=== PATIENT | female | born 1975 | race Asian ===

== ENCOUNTER 2017-10-27 05:43 | Emergency (ER) | END 2017-10-27 10:22 | disposition home or self-care (01) ==

== ENCOUNTER 2018-04-12 07:42 | Emergency (ER) | payer OTHER ==
[~2018-04-12] VITALS: Ht 152.4 cm; Wt 52.0 kg
[~2018-04-12 07:42] MED LIST: GLIP5TAB13 PO; HYDR-4011 PO; LISI-313 PO; LORA5TAB4 PO; METF100010 PO; NAPR-985 PO; PHEN-538 PO; SIMV40TA2 PO
[2018-04-12 07:46] VITALS: BP 156/80; PULSE 75; RESP 19; Ht 152.4 cm; Wt 52.0 kg
--- NOTE | 2018-04-12 09:20 | ERD ---
ER Documentation Chief Complaint Chief Complaint right thumb pain HPI 43-year-old female presents with pain in the right thumb for 1 week. States that she gardens and thinks that she may have injured it that way or possibly there might be foreign body inside thumb. Denies numbness, tingling. Past medical history of diabetes. Denies allergies. ROS All systems reviewed and are negative except as per history of present illness. Medications Home Meds Active Scripts Ibuprofen* (Motrin*) 600 Mg Tab, 600 MG PO Q6 for pain for 7 Days, #30 TAB Prov:MORGAN COOPER 04/12/18 Hydrocodone/Acetaminophen ([place] 5-325 Tablet) 1 Each Tablet, 1 TAB PO Q6H PRN for PAIN, #7 TAB 0 Refills Prov:MORGAN COOPER 04/12/18 Hydrocodone/Acetaminophen ([place] 5-325 Tablet) 1 Each Tablet, 1 TAB PO Q6H PRN for PAIN, #7 TAB Prov:AYDEN DAO PA-C 10/27/17 Phenazopyridine Hcl* (Pyridium*) 200 Mg Tab, 200 MG PO TID PRN for URINARY PAIN, #6 TAB Prov:AYDEN DAO PA-C 10/27/17 Naproxen* (Naprosyn*) 500 Mg Tablet, 500 MG PO BID PRN for PAIN AND/OR INFLAMMATION, #30 TAB Prov:AYDEN DAO PA-C 10/27/17 Reported Medications Glipizide* (Glipizide*) 5 Mg Tablet, 5 MG PO BID, TAB 01/12/16 Metformin Hcl* (Metformin Hcl*) 1,000 Mg Tablet, 1000 MG PO WITH BREAKFAST DINNE, #60 TAB 01/12/16 Loratadine* (Claritin*) 5 Mg Tab.rapdis, 5 MG PO DAILY, #30 TAB 01/12/16 Lisinopril* (Lisinopril*) 5 Mg Tablet, 2.5 MG PO DAILY, #30 TAB 01/12/16 Simvastatin* (Zocor*) 40 Mg Tablet, 40 MG PO DAILY 08/13/11 Allergies Allergies: Coded Allergies: No Known Allergy (Unverified , 10/27/17) PMhx/Soc History of Surgery: No Anesthesia Reaction: No Hx Neurological Disorder: No Hx Respiratory Disorders: No Hx Cardiac Disorders: No Hx Psychiatric Problems: No Hx Miscellaneous Medical Probl: Yes (DM) Hx Alcohol Use: No Hx Substance Use: No Hx Tobacco Use: No FmHx Family History: diabetes Physical Exam Vitals Vital Signs Date Temp Pulse Resp B/P (MAP) Pulse Ox O2 O2 Flow FiO2 Time Delivery Rate 04/12/18 98.7 75 19 156/80 99 07:46 (105) Physical Exam Const: No acute distress Resp: Clear to auscultation bilaterally Cardio: Regular rate and rhythm, no murmurs Ext: Right thumb tender to palpation on distal pulp as well as first metatarsal and DIP and PIP. Positive Finkelsteins. No edema or erythema. No bony deformities noted. Neur: Awake and alert Psych: Normal Mood and Affect Results 24 hrs Current Medications Medications Dose Sig/Kindra Start Time Status Last (Trade) Ordered Route PRN Stop Time Admin Dose Reason Admin 1 tab ONCE ONCE 04/12/18 DC 04/12/18 Acetaminophen PO 09:30 09:18 / 04/12/18 09:31 Hydrocodone Bitart ([place] (5/325)) Procedures/MDM DIAGNOSTIC IMAGING REPORT Patient: BARAK DURÁN : 1975 Age: 43 Sex: F MR #: [id number] DOS: 04/12/18912 Ordering MD: MORGAN COOPER Location: [facility] Room/Bed: PROCEDURE: XR Hand. CLINICAL INDICATION: Pain TECHNIQUE: AP oblique and lateral views of the right hand were obtained. COMPARISON: No prior studies are available for comparison. FINDINGS: There is normal mineralization. No acute fracture or dislocation is seen. There are no significant degenerative changes. There is no significant soft tissue swelling. IMPRESSION: Normal x-ray of the right hand x-ray . .Jefferson Bee MD, MD Date Time Electronically viewed and signed by .Jefferson Bee MD, MD on 04/12/2018 09:47 .A/ CC: MORGAN COOPER [id number] DIAGNOSTIC IMAGING REPORT Patient: BARAK DURÁN : 1975 Age: 43 Sex: F MR #: [id number] DOS: 04/12/18912 Ordering MD: MORGAN COOPER Location: [facility] Room/Bed: PROCEDURE: US soft tissues of the right thumb CLINICAL INDICATION: Pain, infection TECHNIQUE: Multiple sonographic images of the soft tissues of the right thumb were obtained utilizing a linear array transducer with grayscale and color-flow and a Doppler imaging. The images were reviewed on a high-resolution PACS workstation. COMPARISON: No prior studies are available for comparison. FINDINGS: No focal mass or fluid collection visualized. There is no evidence of echogenic foreign body. RPTAT: AA IMPRESSION: No focal mass or fluid collection visualized. If symptoms persist, CT with contrast is recommended. .Jerald Morrow MD, MD Date Time Electronically viewed and signed by .Jerald Morrow MD, MD on 04/12/2018 09:47 .S/ CC: MORGAN COOPER [id number] ER Course: [place] given. Right hand and thumb US - WNL. Thumb spica - sensation and cap refill intact after placement. MDM: 43-year-old female presents with pain in the right thumb for 1 week. States that she gardens and thinks that she may have injured it that way or possibly there might be foreign body inside thumb. There was some suspicion for possible fracture of the thumb or the metacarpal, so a right hand x-ray was ordered. Results within normal limits. In addition, patient stated that she was concerned that there might be foreign body in the pulp of the right thumb incurred during gardening, however neither ultrasound nor x-ray showed any foreign bodies. Ultrasound also showed no fluid or pus collection. I have low suspicion for fracture or felon. Based on exam and history, likely etiology is de Quervain's tenosynovitis. Patient given Rx for pain medication and thumb spica splint. I told patient needs to follow-up with Ortho. Patient discharged with strict ER precautions. Patient advised to follow up with PMD. All questions answered at discharge. Departure Diagnosis: Primary Impression: Tenosynovitis, de Quervain Condition: Stable MORGAN COOPER Apr 12, 2018 09:20
[2018-04-12] MEDS ORDERED: HYDROCODONE/APAP (5/325) TAB PO ONE (09:30)
[2018-04-12] MEDS ORDERED: IBUP-1542 PO ×2 (10:43→10:44)
[2018-04-12] MEDS ORDERED: HYDR-4011 PO (10:43)
== END 2018-04-12 11:02 | disposition home or self-care (01) ==
LOC: FTE 07:42
DX: M65.4 Radial styloid tenosynovitis [de Quervain] (principal); E11.9 Type 2 diabetes mellitus without complications; Z79.84 Long term (current) use of oral hypoglycemic drugs
CPT/HCPCS: 73130; 76536; Z7610

== ENCOUNTER 2018-04-14 10:28 | Emergency (ER) | payer OTHER ==
[~2018-04-14] VITALS: Ht 157.5 cm; Wt 51.7 kg
[~2018-04-14 10:28] MED LIST changes: +IBUP-1542 PO
[2018-04-14 10:58] VITALS: Ht 157.5 cm; Wt 51.7 kg
--- NOTE | 2018-04-14 11:42 | ERD ---
ER Documentation Chief Complaint Chief Complaint RECHECK RT THUMB HPI This 43-year-old female presents for recheck on right thumb patient seen here 2 days ago and had a normal ultrasound and normal x-ray. She was diagnosed with tendinitis. She has pain in the pad of the right thumb she also has some pain radiating mostly to the PIP and some to the MCP joint. She does repetitive motion of the right hand. She gives a remote history of possibly a splinter but none recently. She denies fevers, redness, discharge. ROS All systems reviewed and are negative except as per history of present illness. Medications Home Meds Active Scripts Ibuprofen* (Motrin*) 600 Mg Tab, 600 MG PO Q6 for pain for 7 Days, #30 TAB Prov:MORGAN COOPER 04/12/18 Hydrocodone/Acetaminophen ([place] 5-325 Tablet) 1 Each Tablet, 1 TAB PO Q6H PRN for PAIN, #7 TAB 0 Refills Prov:MORGAN COOPER 04/12/18 Hydrocodone/Acetaminophen ([place] 5-325 Tablet) 1 Each Tablet, 1 TAB PO Q6H PRN for PAIN, #7 TAB Prov:AYDEN DAO PA-C 10/27/17 Phenazopyridine Hcl* (Pyridium*) 200 Mg Tab, 200 MG PO TID PRN for URINARY PAIN, #6 TAB Prov:AYDEN DAO PA-C 10/27/17 Naproxen* (Naprosyn*) 500 Mg Tablet, 500 MG PO BID PRN for PAIN AND/OR INFLAMMATION, #30 TAB Prov:AYDEN DAO PA-C 10/27/17 Reported Medications Glipizide* (Glipizide*) 5 Mg Tablet, 5 MG PO BID, TAB 01/12/16 Metformin Hcl* (Metformin Hcl*) 1,000 Mg Tablet, 1000 MG PO WITH BREAKFAST DINNE, #60 TAB 01/12/16 Loratadine* (Claritin*) 5 Mg Tab.rapdis, 5 MG PO DAILY, #30 TAB 01/12/16 Lisinopril* (Lisinopril*) 5 Mg Tablet, 2.5 MG PO DAILY, #30 TAB 01/12/16 Simvastatin* (Zocor*) 40 Mg Tablet, 40 MG PO DAILY 08/13/11 Allergies Allergies: Coded Allergies: No Known Allergy (Unverified , 10/27/17) PMhx/Soc Medical and Surgical Hx: pt denies Surgical Hx History of Surgery: No Anesthesia Reaction: No Hx Neurological Disorder: No Hx Respiratory Disorders: No Hx Cardiac Disorders: No Hx Psychiatric Problems: No Hx Miscellaneous Medical Probl: Yes (DM) Hx Alcohol Use: No Hx Substance Use: No Hx Tobacco Use: No Smoking Status: Never smoker FmHx Family History: No diabetes, No coronary disease, No other Physical Exam Vitals Vital Signs Date Temp Pulse Resp B/P (MAP) Pulse Ox O2 O2 Flow FiO2 Time Delivery Rate 04/14/18 98.6 84 17 120/77 98 10:58 (91) Physical Exam Const: No acute distress Head: Atraumatic Eyes: Normal Conjunctiva ENT: Normal External Ears, Nose and Mouth. Neck: Full range of motion. No meningismus. Resp: Clear to auscultation bilaterally Cardio: Regular rate and rhythm, no murmurs Abd: Soft, non tender, non distended. Normal bowel sounds Skin: No petechiae or rashes Back: No midline or flank tenderness Ext: No cyanosis, or edema. Mild tenderness on the right thumb pad. Also pain passive range of motion extending up the mostly extensor area of the right thumb. Mildly positive Victorino's test. No significant redness, fluctuance, discharge negative knavel sign. Neur: Awake and alert Psych: Normal Mood and Affect Results 24 hrs Current Medications Medications Dose Sig/Kindra Start Time Status Last (Trade) Ordered Route PRN Stop Time Admin Dose Reason Admin 650 mg ONCE ONCE 04/14/18 Acetaminophen PO 12:00 (Tylenol 04/14/18 12:01 Tab) Procedures/MDM She presents with right thumb pain for last 1-2 weeks. She has pain on the tendon area as well as the pad. There is no obvious signs to suggest infection, abscess and no signs of tenosynovitis, osteomyelitis, felon, abscess to be drained or significant cellulitis. She may have subclinical infection we will treat empirically with doxycycline, ibuprofen continued immobilization and recommendations for hand specialist evaluation for persistent symptoms. Patient is advised she likely needs authorization from her primary doctor for specialist visit for persistent symptoms. The patient was stable with no new complaints during the ER course. Clinically, there is no current evidence to suggest meningitis, sepsis, acute abdomen, pneumonia, stroke, acute coronary syndrome, pulmonary embolism, aortic dissection or any other emergent condition appearing to require further evaluation or hospitalization. Patient counseled regarding my diagnostic impression and care plan. Prior to discharge all questions answered. Pt agrees with treatment plan and understands strict return precautions. Pt is instructed to follow up with primary care provider within 24-48 hours. Precautionary instructions provided including instructions to return to the ER if not improving or for any worsening or changing symptoms or concerns. Departure Diagnosis: Primary Impression: Finger pain Laterality: right Qualified Codes: M79.644 - Pain in right finger(s) Condition: Stable Patient Instructions: Paronychia, Tendonitis Additional Instructions: We will treat for possible mild infection. Recommend hand specialist evaluation for persistent symptoms. See primary doctor for referral. Recheck otherwise for fevers, worsening redness, new or worsening symptoms. XIOMARA ALVARADO MD Apr 14, 2018 11:42
[2018-04-14] MEDS ORDERED: ACETAMINOPHEN 325 MG TAB PO ONE (12:00)
[2018-04-14] MEDS ORDERED: DOXY100T21 PO (12:11)
[2018-04-14] MEDS ORDERED: IBUP-1542 PO (12:11)
[2018-04-14 12:14] VITALS: BP 115/67; PULSE 79; RESP 20
== END 2018-04-14 12:14 | disposition home or self-care (01) ==
LOC: FTE 10:28
DX: M79.644 Pain in right finger(s) (principal); E11.9 Type 2 diabetes mellitus without complications; Z79.84 Long term (current) use of oral hypoglycemic drugs
CPT/HCPCS: 29130; Z7502; Z7610

== ENCOUNTER 2018-05-28 08:18 | Emergency (ER) | payer OTHER ==
[~2018-05-28] VITALS: Ht 167.6 cm; Wt 51.4 kg
[~2018-05-28 08:18] MED LIST changes: +DOXY100T21 PO
[2018-05-28 08:24] VITALS: BP 125/77; PULSE 101; RESP 20; Ht 167.6 cm; Wt 51.4 kg
--- NOTE | 2018-05-28 09:01 | ERD ---
ER Documentation Chief Complaint Chief Complaint Complains of a cough with flu like symptoms x 3 days HPI Patient is a 43-year-old female with a history of DM type II, hyperlipidemia, hypertension, anxiety disorder, presents the ER for concerns of a fever, cough, body aches, sore throat times 2 days. Patient admits to tactile fevers, she did not check her temperature with thermometer. Patient states her cough is productive. Patient states she has clear sputum production with occasional specks of blood. Patient denies any recent travel, night sweats or history of TB. Patient states she took NyQuil for her symptoms. Patient denies any shortness of breath or chest pain. Patient denies any nausea, vomiting, abdominal pain or diarrhea. Patient is not sure if she received a flu shot. ROS All systems reviewed and are negative except as per history of present illness. Medications Home Meds Active Scripts Doxycycline Monohydrate* (Doxycycline Monohydrate*) 100 Mg Tablet, 100 MG PO BID, #20 TAB Prov:XIOMARA ALVARADO MD 04/14/18 Ibuprofen* (Motrin*) 600 Mg Tab, 600 MG PO Q6, #20 TAB Prov:XIOMARA ALVARADO MD 04/14/18 Ibuprofen* (Motrin*) 600 Mg Tab, 600 MG PO Q6 for pain for 7 Days, #30 TAB Prov:MORGAN COOPER 04/12/18 Hydrocodone/Acetaminophen ([place] 5-325 Tablet) 1 Each Tablet, 1 TAB PO Q6H PRN for PAIN, #7 TAB 0 Refills Prov:MORGAN COOPER 04/12/18 Hydrocodone/Acetaminophen ([place] 5-325 Tablet) 1 Each Tablet, 1 TAB PO Q6H PRN for PAIN, #7 TAB Prov:AYDEN DAO PA-C 10/27/17 Phenazopyridine Hcl* (Pyridium*) 200 Mg Tab, 200 MG PO TID PRN for URINARY PAIN, #6 TAB Prov:AYDEN DAO PA-C 10/27/17 Naproxen* (Naprosyn*) 500 Mg Tablet, 500 MG PO BID PRN for PAIN AND/OR INFLAMMATION, #30 TAB Prov:AYDEN DAO PA-C 10/27/17 Reported Medications Glipizide* (Glipizide*) 5 Mg Tablet, 5 MG PO BID, TAB 01/12/16 Metformin Hcl* (Metformin Hcl*) 1,000 Mg Tablet, 1000 MG PO WITH BREAKFAST DINNE, #60 TAB 01/12/16 Loratadine* (Claritin*) 5 Mg Tab.rapdis, 5 MG PO DAILY, #30 TAB 01/12/16 Lisinopril* (Lisinopril*) 5 Mg Tablet, 2.5 MG PO DAILY, #30 TAB 01/12/16 Simvastatin* (Zocor*) 40 Mg Tablet, 40 MG PO DAILY 08/13/11 Allergies Allergies: Coded Allergies: No Known Allergy (Unverified , 10/27/17) PMhx/Soc History of Surgery: No Anesthesia Reaction: No Hx Neurological Disorder: No Hx Respiratory Disorders: No Hx Cardiac Disorders: No Hx Psychiatric Problems: No Hx Miscellaneous Medical Probl: Yes (DM, hyperlipidemia, hypertension) Hx Alcohol Use: No Hx Substance Use: No Hx Tobacco Use: No FmHx Family History: diabetes Physical Exam Vitals Vital Signs Date Temp Pulse Resp B/P (MAP) Pulse Ox O2 O2 Flow FiO2 Time Delivery Rate 05/28/18 99.3 101 20 125/77 99 08:24 (93) Physical Exam GENERAL: Well-developed, well-nourished female. Appears in no acute distress. Speaking in full sentences. HEAD: Normocephalic, atraumatic. EYES: Pupils are equally reactive bilaterally. EOMs grossly intact. No conjunctival erythema. ENT: Bilateral TMs are nonerythematous, nonbulging. Oropharynx is pink, no tonsillar exudates noted. Moist mucous membranes. No uvula deviation. No kissing tonsils. NECK: Supple. No meningismus. Normal range of motion of the neck. LUNG: Clear to auscultation bilaterally. No rhonchi, wheezing, rales or coarse breath sounds. HEART: Regular rate and rhythm. No murmurs, rubs or gallops. EXTREMITIES: Equal pulses bilaterally. No peripheral clubbing, cyanosis or edema. No unilateral leg swelling. NEUROLOGIC: Alert and oriented. Moving all four extremities without any difficulty. Normal speech. Steady gait. SKIN: Normal color. Warm and dry. No rashes or lesions. Procedures/MDM ED COURSE: The patient was stable throughout ED course. I kept the patient and/or family informed of laboratory and diagnostic imaging results throughout the ED course. DIAGNOSTIC IMAGING: Read by radiologist. Patient: BARAK DURÁN : 1975 Age: 43 Sex: F MR #: [id number] DOS: 05/28/18 0900 Ordering MD: LENIN ESPINO PA-C Location: [facility] Room/Bed: PROCEDURE: XR Chest. CLINICAL INDICATION: Cough TECHNIQUE: Single frontal view of the chest was obtained COMPARISON: CR CHEST 01/12/2016 FINDINGS: The heart and mediastinum are within normal limits. The lungs are clear. There is no pleural effusion or pneumothorax. RPTAT: AA IMPRESSION: No acute disease. .Jerald Morrow MD, MD Date Time Electronically viewed and signed by .Jerald Morrow MD, on 05/28/2018 09:40 .S/ CC: LENIN ESPINO PA-C [id number] PROCEDURES: None. MEDICAL DECISION MAKING: This is a 43-year-old female presents the ER for concerns of intermittent tactile fevers, cough, congestion times 2 days. Vital signs were reviewed. Patient was afebrile. Patient was not hypoxic. ENT exam was normal. Lung exam was normal. Chest x-ray was obtained per patient's request and was unremarkable. Influenza swab was positive for influenza A. Given that patient presents with symptoms within the last 2 days, patient is in the window to receive Tamiflu. Low suspicion for pneumonia, meningitis, sinusitis, otitis externa, acute otitis media, strep pharyngitis, epiglottitis or peritonsillar abscess. Low suspicion for sepsis. Patient was nontoxic, [id number] prior to discharge. PRESCRIPTIONS: Tylenol, ibuprofen, Tessalon Perles, Tamiflu DISCHARGE: At this time, patient is stable for discharge and outpatient management. Supp ortive therapies such as OTC throat lozenges, salt water gurgles, popsicles and jello discussed. I have instructed the patient to follow-up with his/her primary care physician in 1-2 days. I have instructed the patient to promptly return to the ER for any new or worsening symptoms including increased pain, swelling, fever, nausea, vomiting, weakness or difficulty breathing. The patient and/or family expressed understanding of and agreement with this plan. All questions were answered. Home care instructions were provided. Disclaimer: Inadvertent spelling and grammatical errors are likely due to EHR/dictation software use and do not reflect on the overall quality of patient care. Also, please note that the electronic time recorded on this note does not necessarily reflect the actual time of the patient encounter. Departure Diagnosis: Primary Impression: Influenza A Condition: Fair Patient Instructions: Viral Syndrome (Adult) Referrals: [facility] YOU HAVE RECEIVED A MEDICAL SCREENING EXAM AND THE RESULTS INDICATE THAT YOU DO NOT HAVE A CONDITION THAT REQUIRES URGENT TREATMENT IN THE EMERGENCY DEPARTMENT. FURTHER EVALUATION AND TREATMENT OF YOUR CONDITION CAN WAIT UNTIL YOU ARE SEEN IN YOUR DOCTORS OFFICE WITHIN THE NEXT 1-2 DAYS. IT IS YOUR RESPONSIBILITY TO MAKE AN APPOINTMENT FOR FOLOW-UP CARE. IF YOU HAVE A PRIMARY DOCTOR --you should call your primary doctor and schedule an appointment IF YOU DO NOT HAVE A PRIMARY DOCTOR YOU CAN CALL OUR PHYSICIAN REFERRAL HOTLINE AT IF YOU CAN NOT AFFORD TO SEE A PHYSICIAN YOU CAN CHOSE FROM THE FOLLOWING [facility] [address] [facility]. [facility] [address] [facility] [place] [address] [facility] [facility] [address] [facility] [address] [facility]. [facility]. [address] [facility]. [facility] YOU HAVE RECEIVED A MEDICAL SCREENING EXAM AND THE RESULTS INDICATE THAT YOU DO NOT HAVE A CONDITION THAT REQUIRES URGENT TREATMENT IN THE EMERGENCY DEPARTMENT. FURTHER EVALUATION AND TREATMENT OF YOUR CONDITION CAN WAIT UNTIL YOU ARE SEEN IN YOUR DOCTORS OFFICE WITHIN THE NEXT 1-2 DAYS. IT IS YOUR RESPONSIBILITY TO MAKE AN APPOINTMENT FOR FOLOW-UP CARE. IF YOU HAVE A PRIMARY DOCTOR --you should call your primary doctor and schedule and appointment IF YOU DO NOT HAVE A PRIMARY DOCTOR YOU CAN CALL OUR PHYSICIAN REFERRAL HOTLINE AT . IF YOU CAN NOT AFFORD TO SEE A PHYSICIAN YOU CAN CHOSE FROM THE FOLLOWING [facility] INSTITUTIONS: [facility] [place] [address] [place] [address] [facility] [address] [place] [address] [facility] [address] [place] [address] Additional Instructions: Call your primary care doctor TOMORROW for an appointment during the next 1-2 days.See the doctor sooner or return here if your condition worsens before your appointment time. LENIN ESPINO PA-C May 28, 2018 09:01
[2018-05-28] MEDS ORDERED: ACET500C5 PO (09:47)
[2018-05-28] MEDS ORDERED: OSEL75CA23 PO (09:47)
[2018-05-28] MEDS ORDERED: BENZ-6 PO (09:48)
[2018-05-28] MEDS ORDERED: IBUP-1542 PO (09:48)
== END 2018-05-28 11:08 | disposition home or self-care (01) ==
LOC: FTE 08:18
DX: J10.1 Influenza due to other identified influenza virus with other respiratory manifestations (principal); I10 Essential (primary) hypertension; E11.9 Type 2 diabetes mellitus without complications; Z79.84 Long term (current) use of oral hypoglycemic drugs
CPT/HCPCS: 71045; 87400; Z7502

== ENCOUNTER 2018-06-01 20:51 | Emergency (ER) | payer OTHER ==
[~2018-06-01] VITALS: Wt 51.8 kg
[~2018-06-01 20:51] MED LIST changes: +ACET500C5 PO; +BENZ-6 PO; +OSEL75CA23 PO
--- NOTE | 2018-06-02 01:13 | ERD ---
ER Documentation Chief Complaint Chief Complaint bib self, cc: cough and chest congestion x 4 days, hx of flu HPI 43-year-old female, presents to the emergency department, complaining of wo rsening of cough and chest congestion after having influenza last week. The patient denies fevers, no chills, no shortness of breath. She is requesting a prescription for antibiotics. ROS All systems reviewed and are negative except as per history of present illness. Medications Home Meds Active Scripts Albuterol Sulfate* (Proair HFA*) 8.5 Gm Hfa.aer.ad, 2 PUFF INH Q4 PRN for COUGH, #1 INHALER Prov:LASHAE WALKER MD 06/02/18 Promethazine HCl/Codeine (Prometh-Codein 6.25-10 mg/5 ml) 5 Ml Syrup, 5 ML PO BID for cough, #60 ML Prov:LASHAE WALKER MD 06/02/18 Azithromycin* (Zithromax*) 250 Mg Tablet, 250 MG PO DAILY for 4 Days, TAB Prov:LASHAE WALKER MD 06/02/18 Benzonatate* (Tessalon Perle*) 100 Mg Capsule, 100 MG PO Q8H PRN for COUGH, #20 CAP Prov:LENIN ESPINO-Marina 05/28/18 Ibuprofen* (Motrin*) 600 Mg Tab, 600 MG PO Q6, #30 TAB Prov:LENIN ESPINO-Marina 05/28/18 Acetaminophen* (Tylophen*) 500 Mg Capsule, 1 CAP PO Q6H PRN for PAIN AND OR ELEVATED TEMP, #20 CAP Prov:LENIN ESPINO-C 05/28/18 Oseltamivir Phosphate* (Tamiflu*) 75 Mg Capsule, 75 MG PO BID for 5 Days, CAP Prov:LENIN ESPINO-C 05/28/18 Doxycycline Monohydrate* (Doxycycline Monohydrate*) 100 Mg Tablet, 100 MG PO BID, #20 TAB Prov:XIOMARA ALVARADO MD 04/14/18 Ibuprofen* (Motrin*) 600 Mg Tab, 600 MG PO Q6, #20 TAB Prov:XIOMARA ALVARADO MD 04/14/18 Ibuprofen* (Motrin*) 600 Mg Tab, 600 MG PO Q6 for pain for 7 Days, #30 TAB Prov:MORGAN COOPER 04/12/18 Hydrocodone/Acetaminophen ([place] 5-325 Tablet) 1 Each Tablet, 1 TAB PO Q6H PRN for PAIN, #7 TAB 0 Refills Prov:MORGAN COOPER 04/12/18 Hydrocodone/Acetaminophen ([place] 5-325 Tablet) 1 Each Tablet, 1 TAB PO Q6H PRN for PAIN, #7 TAB Prov:AYDEN DAO PA-C 10/27/17 Phenazopyridine Hcl* (Pyridium*) 200 Mg Tab, 200 MG PO TID PRN for URINARY PAIN, #6 TAB Prov:AYDEN DAO PA-C 10/27/17 Naproxen* (Naprosyn*) 500 Mg Tablet, 500 MG PO BID PRN for PAIN AND/OR INFLAMMATION, #30 TAB Prov:AYDEN DAO PA-C 10/27/17 Reported Medications Glipizide* (Glipizide*) 5 Mg Tablet, 5 MG PO BID, TAB 01/12/16 Metformin Hcl* (Metformin Hcl*) 1,000 Mg Tablet, 1000 MG PO WITH BREAKFAST DINNE, #60 TAB 01/12/16 Loratadine* (Claritin*) 5 Mg Tab.rapdis, 5 MG PO DAILY, #30 TAB 01/12/16 Lisinopril* (Lisinopril*) 5 Mg Tablet, 2.5 MG PO DAILY, #30 TAB 01/12/16 Simvastatin* (Zocor*) 40 Mg Tablet, 40 MG PO DAILY 08/13/11 Allergies Allergies: Coded Allergies: No Known Allergy (Unverified , 10/27/17) PMhx/Soc History of Surgery: No Anesthesia Reaction: No Hx Neurological Disorder: No Hx Respiratory Disorders: No Hx Cardiac Disorders: No Hx Psychiatric Problems: No Hx Miscellaneous Medical Probl: Yes (DM, hyperlipidemia, hypertension) Hx Alcohol Use: No Hx Substance Use: No Hx Tobacco Use: No FmHx Family History: No diabetes, No coronary disease Physical Exam Vitals Vital Signs Date Temp Pulse Resp B/P (MAP) Pulse Ox O2 O2 Flow FiO2 Time Delivery Rate 06/02/18 97.9 80 18 107/59 98 Room Air 02:22 (75) 06/02/18 90 18 97 21 01:40 06/01/18 99.9 94 19 131/59 97 21:01 (83) Physical Exam Const: Mild distress due to cough Head: Atraumatic Eyes: Normal Conjunctiva ENT: Erythematous oropharynx, normal External Ears, Nose and Mouth. Neck: Full range of motion. No meningismus. Resp: Rhonchi to auscultation bilaterally Cardio: Regular rate and rhythm, no murmurs Abd: Soft, non tender, non distended. Normal bowel sounds Skin: No petechiae or rashes Back: No midline or flank tenderness Ext: No cyanosis, or edema Neur: Awake and alert Psych: Normal Mood and Affect Results 24 hrs Current Medications Medications Dose Sig/Kindra Start Time Status Last (Trade) Ordered Route PRN Stop Time Admin Dose Reason Admin Albuterol 5 mg ONCE STAT 06/02/18 DC 06/02/18 (Proventil HHN 01:19 06/02/18 01:40 0.083% (Neb)) 01:27 500 mg ONCE ONCE 06/02/18 DC 06/02/18 Azithromycin PO 01:30 06/02/18 01:42 (Zithromax) 01:31 Hydrocodone 5 ml ONCE ONCE 06/02/18 DC 06/02/18 Bit/ PO 01:30 06/02/18 01:42 Homatropine 01:31 Methylb (Hycodan Liquid) Procedures/MDM Vital signs stable, no respiratory distress. Differential diagnosis include but not limited to: Respiratory infection bacterial/viral/fungal. Influenza, pneumonitis, allergies, GERD. Less likely foreign body aspiration, cardiac related. Physical examination and clinical presentation consistent most likely with viral infection with early superimposed bacterial infection. During the ED course the patient remained stable, no new complaints. Treatment options and clinical impression discussed with the patient who agrees with management. The patient is stable to be treated outpatient and will be discharged home. Some side effects of prescribed medications (headache, rash, nausea, vomiting, diarrhea, interactions with other medications) were reviewed. The patient needs to follow up with the primary care provider in the next 48h. If symptoms persist, worsen or new symptoms develop, then patient should return to the ED immediately. Disclaimer: Inadvertent spelling and grammatical errors are likely due to EHR/dictation software use and do not reflect on the overall quality of patient care. Also, please note that the electronic time recorded on this note does not necessarily reflect the actual time of the patient encounter. Departure Diagnosis: Primary Impression: Cough Additional Impression: Fever Condition: Stable Additional Instructions: Thank you very much for allowing us to participate in your care. Your health and safety is our top priority at [facility]. Call your primary care doctor TOMORROW for an appointment during the next 2-4 days and bring all the information and medications prescribed. Have prescriptions filled and follow precisely the directions on the label. If the symptoms get worse and your provider is unavailable, return to the Emergency Department immediately. LASHAE WALKER MD Jun 02, 2018 01:13
[2018-06-02] MEDS ORDERED: ALBUTEROL 0.083% (NEB) 2.5 MG/3 ML AMP HHN STA (01:19)
[2018-06-02] MEDS ORDERED: AZIT250T PO (01:23)
[2018-06-02] MEDS ORDERED: PROM5SYR2 PO (01:23)
[2018-06-02] MEDS ORDERED: ALBU8.5H8 INH (01:23)
[2018-06-02] MEDS ORDERED: HYDROCODONE/HOMATROPINE 5ML CUP PO ONE (01:30)
[2018-06-02] MEDS ORDERED: AZITHROMYCIN 250 MG TAB PO ONE (01:30)
[2018-06-02 02:22] VITALS: BP 107/59; PULSE 80; RESP 18
== END 2018-06-02 02:25 | disposition home or self-care (01) ==
LOC: FTE 20:51
DX: R05 Cough (principal); R50.9 Fever, unspecified; E11.9 Type 2 diabetes mellitus without complications; I10 Essential (primary) hypertension; Z79.84 Long term (current) use of oral hypoglycemic drugs
CPT/HCPCS: 94664; Z7502; Z7610

== ENCOUNTER 2018-11-05 17:36 | Emergency (ER) | payer OTHER ==
[~2018-11-05] VITALS: Ht 154.9 cm; Wt 51.0 kg
[~2018-11-05 17:36] MED LIST changes: +ALBU8.5H8 INH; +AZIT250T PO; +CEPH-443 PO; +IBUP-1561 PO; +PROM5SYR2 PO
[2018-11-05 17:42] VITALS: Ht 154.9 cm; Wt 51.0 kg
--- NOTE | 2018-11-05 18:38 | ERD ---
ER Documentation Chief Complaint Chief Complaint R ring finger lac w ceramic dish; not actively bleeding HPI 43-year-old female presenting laceration to enter webbing spaces of the fourth a nd fifth digit. Patient cut herself while cleaning addition earlier today. She is right-hand dominant and up-to-date on vaccinations. Patient denies any difficulty moving digits. She states she has normal feeling to all her fingers. Denies other medical problems. NKDA. Surgical history denies. Social history denies ROS All systems reviewed and are negative except as per history of present illness. Medications Home Meds Active Scripts Ibuprofen* (Motrin*) 400 Mg Tab, 400 MG PO Q6, #30 TAB Prov:LOBO JORGE PA-C 11/05/18 Cephalexin* (Keflex*) 500 Mg Capsule, 500 MG PO QID for 7 Days, CAP Prov:LOBO JORGE PA-C 11/05/18 Albuterol Sulfate* (Proair HFA*) 8.5 Gm Hfa.aer.ad, 2 PUFF INH Q4 PRN for COUGH, #1 INHALER Prov:LASHAE WALKER MD 06/02/18 Promethazine HCl/Codeine (Prometh-Codein 6.25-10 mg/5 ml) 5 Ml Syrup, 5 ML PO BID for cough, #60 ML Prov:LASHAE WALKER MD 06/02/18 Azithromycin* (Zithromax*) 250 Mg Tablet, 250 MG PO DAILY for 4 Days, TAB Prov:LASHAE WALKER MD 06/02/18 Benzonatate* (Tessalon Perle*) 100 Mg Capsule, 100 MG PO Q8H PRN for COUGH, #20 CAP Prov:LENIN ESPINO PA-C 05/28/18 Ibuprofen* (Motrin*) 600 Mg Tab, 600 MG PO Q6, #30 TAB Prov:LENIN ESPINO PA-C 05/28/18 Acetaminophen* (Tylophen*) 500 Mg Capsule, 1 CAP PO Q6H PRN for PAIN AND OR ELEVATED TEMP, #20 CAP Prov:LENIN ESPINO PA-C 05/28/18 Oseltamivir Phosphate* (Tamiflu*) 75 Mg Capsule, 75 MG PO BID for 5 Days, CAP Prov:LENIN ESPINOC 05/28/18 Doxycycline Monohydrate* (Doxycycline Monohydrate*) 100 Mg Tablet, 100 MG PO BID, #20 TAB Prov:XIOMARA ALVARADO MD 04/14/18 Ibuprofen* (Motrin*) 600 Mg Tab, 600 MG PO Q6, #20 TAB Prov:XIOMARA ALVARADO MD 04/14/18 Ibuprofen* (Motrin*) 600 Mg Tab, 600 MG PO Q6 for pain for 7 Days, #30 TAB Prov:MORGAN COOPER 04/12/18 Hydrocodone/Acetaminophen ([place] 5-325 Tablet) 1 Each Tablet, 1 TAB PO Q6H PRN for PAIN, #7 TAB 0 Refills Prov:MORGAN COOPER 04/12/18 Hydrocodone/Acetaminophen ([place] 5-325 Tablet) 1 Each Tablet, 1 TAB PO Q6H PRN for PAIN, #7 TAB Prov:AYDEN DAO PA-C 10/27/17 Phenazopyridine Hcl* (Pyridium*) 200 Mg Tab, 200 MG PO TID PRN for URINARY PAIN, #6 TAB Prov:AYDEN DAO PA-C 10/27/17 Naproxen* (Naprosyn*) 500 Mg Tablet, 500 MG PO BID PRN for PAIN AND/OR INFLAMMATION, #30 TAB Prov:AYDEN DAO PA-C 10/27/17 Reported Medications Glipizide* (Glipizide*) 5 Mg Tablet, 5 MG PO BID, TAB 01/12/16 Metformin Hcl* (Metformin Hcl*) 1,000 Mg Tablet, 1000 MG PO WITH BREAKFAST DINNE, #60 TAB 01/12/16 Loratadine* (Claritin*) 5 Mg Tab.rapdis, 5 MG PO DAILY, #30 TAB 01/12/16 Lisinopril* (Lisinopril*) 5 Mg Tablet, 2.5 MG PO DAILY, #30 TAB 01/12/16 Simvastatin* (Zocor*) 40 Mg Tablet, 40 MG PO DAILY 08/13/11 Allergies Allergies: Coded Allergies: No Known Allergy (Unverified , 10/27/17) PMhx/Soc History of Surgery: No Anesthesia Reaction: No Hx Neurological Disorder: No Hx Respiratory Disorders: No Hx Cardiac Disorders: Yes (HTN) Hx Psychiatric Problems: No Hx Miscellaneous Medical Probl: Yes (DM,Dyslipidemia) Hx Alcohol Use: No Hx Substance Use: No Hx Tobacco Use: No Smoking Status: Never smoker FmHx Family History: No diabetes, No coronary disease, No other Physical Exam Vitals Vital Signs Date Temp Pulse Resp B/P (MAP) Pulse Ox O2 O2 Flow FiO2 Time Delivery Rate 11/05/18 99.4 95 16 129/74 98 17:42 (92) Physical Exam GENERAL: The patient is well-appearing, well-nourished, in no acute distress HEENT: Atraumatic. Conjunctivae are pink. Pupils equal, round, and reactive to light. There is no scleral icterus. Tympanic membranes clear bilaterally. Oropharynx clear. CHEST: Clear to auscultation bilaterally. There are no rales, wheezes or rhonchi. HEART: Regular rate and rhythm. No murmurs, clicks, rubs or gallops. ABDOMEN:Soft, nontender and nondistended. Good bowel sounds. No rebound or guarding. No gross peritonitis. No gross organomegaly or masses. EXTREMITIES: Equal pulses bilaterally. There is no peripheral clubbing, cy anosis or edema. No focal swelling or erythema. Full range of motion. NEUROLOGIC: Alert and oriented. Cranial nerves II through XII intact. Motor strength in all 4 extremities with 5 out of 5 strength. Sensation grossly intact. SKIN: 1 cm linear laceration noted between the fourth and fifth digit of the right hand of the anterior webspaces. Mild bleeding. No foreign body Procedures/MDM ER course: Wound cleaned with normal saline. Dermabond applied and edges well approximated. MDM: 43-year-old female presenting with laceration to fourth and fifth into her digits webspaces. Patient tolerated procedure well. I have low suspicion for retained foreign body and I have low suspicion for tendon or ligament injury as patient is able to move all digits without difficulty. Patient is discharged with strict ER precautions and told to follow-up with primary care within 1 to 2 days for close evaluation. Patient is told symptoms change or worsen to return immediately to the ER. All questions answered at discharge Departure Diagnosis: Primary Impression: Laceration Condition: Stable Patient Instructions: Laceration, Hand Referrals: [facility] (PCP) Additional Instructions: FOLLOW UP WITH YOUR PRIMARY CARE PHYSICIAN TOMORROW.Return to this facility if you are not improving as expected. LOBO JORGE PA-C Nov 05, 2018 18:38
[2018-11-05 18:48] VITALS: BP 105/68; PULSE 90; RESP 18
== END 2018-11-05 18:48 | disposition home or self-care (01) ==
LOC: FTE 17:36
DX: S61.214A Laceration without foreign body of right ring finger without damage to nail, initial encounter (principal); S61.216A Laceration without foreign body of right little finger without damage to nail, initial encounter; I10 Essential (primary) hypertension; E11.9 Type 2 diabetes mellitus without complications; W26.8XXA Contact with other sharp object(s), not elsewhere classified, initial encounter; Y92.9 Unspecified place or not applicable; Z79.84 Long term (current) use of oral hypoglycemic drugs
CPT/HCPCS: 12001; Z7502